=== PATIENT | male | born 1975 | race African-American/Black ===

== ENCOUNTER 2021-04-02 10:34 | Inpatient (IN) | payer OTHER ==
[2021-04-02 11:11] VITALS: BMI 20.7
[2021-04-02] MEDS ORDERED: NICOTINE 10 MG CARTRIDGE (INHALER) IH PRN (11:36)
[2021-04-02] MEDS ORDERED: LORazepam 1 MG TABLET PO PRN (11:36)
[2021-04-02] MEDS ORDERED: IBUPROFEN 400 MG TABLET (FP) PO PRN (11:36)
[2021-04-02] MEDS ORDERED: MENTHOL/PHENOL 1 EACH UD MM PRN (11:36)
[2021-04-02] MEDS ORDERED: ONDANSETRON *ODT* 4 MG TABLET SL PRN (11:36)
[2021-04-02] MEDS ORDERED: BISMUTH SUBSALICYLATE 524 MG/30 ML PO PRN (11:36)
[2021-04-02] MEDS ORDERED: MAG HYDROX/AL HYDROX/SIMETH 30 ML UNIT-DOSE CUP PO PRN (11:36)
[2021-04-02] MEDS ORDERED: MAGNESIUM HYDROX 2400MG/30ML ORAL SUSPENSION 30 ML CUP PO PRN (11:36)
[2021-04-02] MEDS ORDERED: MAGNESIUM CITRATE 300 ML BOTTLE PO PRN (11:36)
[2021-04-02] MEDS ORDERED: ACETAMINOPHEN 325 MG TABLET (FP) PO PRN ×2 (11:36)
[2021-04-02] MEDS ORDERED: METHOCARBAMOL 500 MG TABLET PO PRN (11:36)
[2021-04-02] MEDS ORDERED: [UNRECOGNIZED DRUG - OTHER] IM ONE (11:39)
[2021-04-02] MEDS ORDERED: VACC MRNA IM ONE (11:39)
[2021-04-02] MEDS ORDERED: LORazepam 2 MG TABLET PO ONE (12:15)
[2021-04-02] MEDS: hydrOXYzine PAMOATE 25 MG CAPSULE (FP) PO SCH ×3 (13:47→22:42)
[2021-04-02] MEDS: LORazepam 2 MG TABLET PO SCH ×2 (17:38→22:42)
[2021-04-02] MEDS: MELATONIN 5 MG TABLETS PO SCH (22:42)
[2021-04-02] MEDS: THIAMINE HCL 100 MG TABLET (FP) PO SCH (22:42)
[2021-04-03] MEDS: hydrOXYzine PAMOATE 25 MG CAPSULE (FP) PO SCH ×5 (05:28→22:48)
[2021-04-03] MEDS: LORazepam 2 MG TABLET PO SCH ×3 (05:28→17:37)
[2021-04-03] MEDS: PRENATAL VITAMINS W/ FOLIC ACID TABLET (FP) PO SCH (10:25)
[2021-04-03 14:53] LABS: HEMATOCRIT 36.6 % (35.4-49); HEMOGLOBIN 12.4 GM/dL (11.7-16.9); MCHC 33.8 g/dl (32.0-35.9); MEAN CELL VOLUME 91.6 fl (80-96); PLATELET COUNT 220 10^3/uL (134-434); RDW 13.1 % (11.9-15.9); WHITE BLOOD COUNT 6.3 K/mm3 (4.0-10.0)
[2021-04-03 14:58] LABS: ALBUMIN 2.9 g/dl (3.4-5.0); BLOOD UREA NITROGEN 13.6 mg/dL (7-18); CALCIUM 8.4 mg/dL (8.5-10.1)
[2021-04-03 15:03] LABS: BILIRUBIN,TOTAL 0.3 mg/dL (0.2-1); CREATININE 0.8 mg/dL (0.55-1.3)
[2021-04-03] MEDS: THIAMINE HCL 100 MG TABLET (FP) PO SCH (22:47)
[2021-04-03] MEDS: MELATONIN 5 MG TABLETS PO SCH (22:47)
[2021-04-03] MEDS: OLANZapine 10 MG TABLET PO SCH (22:49)
[2021-04-04] MEDS: LORazepam 2 MG TABLET PO SCH (02:40)
[2021-04-04] MEDS: LORazepam 1 MG TABLET PO SCH ×4 (06:33→22:49)
[2021-04-04] MEDS: hydrOXYzine PAMOATE 25 MG CAPSULE (FP) PO SCH ×5 (06:34→22:49)
[2021-04-04] MEDS: PRENATAL VITAMINS W/ FOLIC ACID TABLET (FP) PO SCH (10:40)
[2021-04-04] MEDS ORDERED: JANSSEN COVID-19 VAC,AD26/PF 0.5 ML IM ONE (11:00)
[2021-04-04] MEDS ORDERED: MODERNA COVID-19 VACC,MRNA/PF 100 MCG/0.5 ML IM ONE (12:00)
[2021-04-04 13:25] LABS: SICKLE CELL SCREEN NEGATIVE (NEGATIVE)
[2021-04-04] MEDS: OLANZapine 10 MG TABLET PO SCH (22:49)
[2021-04-04] MEDS: THIAMINE HCL 100 MG TABLET (FP) PO SCH (22:49)
[2021-04-04] MEDS: MELATONIN 5 MG TABLETS PO SCH (22:49)
[2021-04-05] MEDS ORDERED: LORazepam 0.5 MG TABLET PO PRN
[2021-04-05] MEDS ORDERED: LORazepam 0.5 MG TABLET PO SCH (05:00)
[2021-04-05] MEDS: hydrOXYzine PAMOATE 25 MG CAPSULE (FP) PO SCH (06:39)
[2021-04-05 09:26] VITALS: BP 136/79; PULSE 99; TEMP 97.1
[2021-04-06] MEDS ORDERED: LORazepam 0.5 MG TABLET PO ONE (05:00)
== END 2021-04-05 09:29 | disposition home or self-care (01) | DRG 897 ==
LOC: YASAS 10:34 → Y3N 11:41
PROVIDERS: ADMIT Allergy & Immunology; ATTEND Allergy & Immunology
PROC: HZ2ZZZZ Detoxification Services for Substance Abuse Treatment (ICD-10-PCS; principal; 2021-04-02)
DX: F10.230 Alcohol dependence with withdrawal, uncomplicated (principal); F17.210 Nicotine dependence, cigarettes, uncomplicated; F25.9 Schizoaffective disorder, unspecified; E78.00 Pure hypercholesterolemia, unspecified; R73.03 Prediabetes; Z86.59 Personal history of other mental and behavioral disorders; Z56.0 Unemployment, unspecified; Z59.00 Homelessness unspecified
CPT/HCPCS: 36415; 80053; 83036; 85027; 85660; 86780; 93005; 93010; C9803; U0003; U0005